=== PATIENT | female | born 1950 | race Caucasian/White ===

== ENCOUNTER → 2017-12-30 | Outpatient (CLI) | payer OTHER, MEDICAID ==
[~2017-12-30] MED LIST: MEDROLDOSEPACK PO; SYNTHROID25 MCG PO
== END ==
LOC: M.RAD 11:12 → EDBD 11:12
DX: J44.1 Chronic obstructive pulmonary disease with (acute) exacerbation (principal); J40 Bronchitis, not specified as acute or chronic

== ENCOUNTER → 2018-07-01 | Outpatient (CLI) | payer OTHER, MEDICAID | LOC: EDBD → M.LAB 06-23 15:19 | PROVIDERS: Surgery | DX: R22.2 Localized swelling, mass and lump, trunk (principal); J98.4 Other disorders of lung; J84.10 Pulmonary fibrosis, unspecified; N28.1 Cyst of kidney, acquired; K76.89 Other specified diseases of liver; I70.0 Atherosclerosis of aorta; F17.210 Nicotine dependence, cigarettes, uncomplicated ==

== ENCOUNTER → 2018-08-31 | Outpatient (CLI) | payer OTHER, MEDICAID | LOC: M.CT 12:44 | DX: J43.9 Emphysema, unspecified (principal); R63.4 Abnormal weight loss; F17.200 Nicotine dependence, unspecified, uncomplicated ==

== ENCOUNTER → 2018-11-22 | Outpatient (CLI) | payer OTHER, MEDICAID | LOC: M.RAD 11-16 15:58 | DX: Z12.31 Encounter for screening mammogram for malignant neoplasm of breast (principal); M81.0 Age-related osteoporosis without current pathological fracture; M85.80 Other specified disorders of bone density and structure, unspecified site; Z78.0 Asymptomatic menopausal state ==

== ENCOUNTER → 2018-11-30 | Outpatient (CLI) | payer OTHER, MEDICAID | LOC: M.RAD 11-24 11:08 | DX: R92.1 Mammographic calcification found on diagnostic imaging of breast (principal) ==

== ENCOUNTER → 2019-01-13 | Outpatient (CLI) | payer OTHER, MEDICAID | LOC: M.RAD 15:33 | DX: M50.322 Other cervical disc degeneration at C5-C6 level (principal); M48.02 Spinal stenosis, cervical region; M12.88 Other specific arthropathies, not elsewhere classified, other specified site; V89.2XXA Person injured in unspecified motor-vehicle accident, traffic, initial encounter ==

== ENCOUNTER → 2019-06-03 | Outpatient (CLI) | payer OTHER | LOC: M.RAD 06-01 14:00 | DX: R92.8 Other abnormal and inconclusive findings on diagnostic imaging of breast (principal) ==

== ENCOUNTER → 2020-05-31 | Outpatient (CLI) | payer OTHER | LOC: M.RAD 12:56 | PROVIDERS: ATTEND Internal Medicine | DX: Z12.31 Encounter for screening mammogram for malignant neoplasm of breast (principal) ==